=== PATIENT | female | born 1930 | race Caucasian/White ===

== ENCOUNTER 2019-06-01 14:12 | Emergency (ER) | payer MEDICARE ==
--- OUTSIDE RECORDS SUMMARY | 2019-06-01 14:36 | XMS REPORT | Summary of Care ---
:1930 Author Organization [facility] Address [address] [place] [address] Care Team Providers Name Role Phone Kirill Forbes MD Primary Care Provider Reason for Visit Auth/Cert Status Reason Specialty Diagnoses / Procedures Referred By Contact Referred To Contact Diagnoses toe ulcer Elvis Ayon MD [address] [facility] [address], [place] [address] Email: [email or web address] Encounter Details Date Type Department Care Team Description 05/29/2019 - Hospital Encounter 01D ONE DAY SUITE Elvis Ayon Claudication 05/30/2019 [address], [place] [address] [facility] [id number] [place] [id number] [phone] Allergies Active Allergy Reactions Severity Noted Date Comments Sulfamethoxazole-Trimethoprim Hives 08/08/2018 Bee Sting Anaphylaxis High 08/08/2018 documented as of this encounter (statuses as of 05/30/2019) Medications Medication Sig Dispensed Refills Start Date End Date Status clopidogrel Take 75 mg 0 06/30/2018 Active (PLAVIX) 75 MG by mouth tablet daily losartan-hydrochl Take 1 0 06/28/2018 Active orothiazide tablet by (HYZAAR) 100-25 mouth daily MG per tablet metoprolol Take 100 mg 0 05/29/2018 Active (TOPROL-XL) 100 by mouth MG 24 hr tablet daily oxybutynin Take 10 mg 11 07/19/2018 Active (DITROPAN-XL) 10 by mouth MG 24 hr tablet daily aspirin 81 MG Take 81 mg 0 Active tablet by mouth daily metFORMIN HCl ER Take 1 30 tablet 0 05/30/2019 Active 500 MG Oral tablet by Tablet Extended mouth Two Release 24 Hour Times Daily (GLUCOPHAGE-XR) metformin Take 500 mg 0 05/29/2019 Discontinued (GLUCOPHAGE-XR) by mouth Two (Reorder) 500 MG 24 hr Times Daily tablet documented as of this encounter (statuses as of 05/30/2019) Active Problems Problem Noted Date PVD (peripheral vascular disease) 08/26/2018 Normocytic anemia 08/11/2018 Cellulitis 08/08/2018 Cellulitis of right lower extremity 08/08/2018 Peripheral vascular disease 08/08/2018 T2DM (type 2 diabetes mellitus) 08/08/2018 HTN (hypertension) 08/08/2018 CAD (coronary artery disease) 08/08/2018 History of rheumatic fever 08/08/2018 HLD (hyperlipidemia) 08/08/2018 Hx of AKA (above knee amputation), left 08/08/2018 documented as of this encounter (statuses as of 05/30/2019) Social History Tobacco Use Types Packs/Day Years Used Date Former Smoker Cigarettes 06 20 Quit: 1972 Smokeless Tobacco: Never Used Alcohol Use Drinks/Week oz/Week Comments Yes occasionally Alcohol Habits Answer Date Recorded How often do you have a drink containing alcohol? Never 08/08/2018 How many drinks containing alcohol do you have on a typical Not asked day when you are drinking? How often do you have six or more drinks on one occasion? Not asked Sex Assigned at Date Recorded Not on file Job Start Date Occupation Industry Not on file Not on file Not on file Travel History Travel Start Travel End No recent travel history available. documented as of this encounter Last Filed Vital Signs Vital Sign Reading Time Taken Comments Blood Pressure 147/67 05/30/2019 11:15 AM EST Pulse 78 05/30/2019 11:15 AM EST Temperature 36.4 05/30/2019 11:15 AM EST C (97.5 F) Respiratory Rate 16 05/30/2019 11:15 AM EST Oxygen Saturation 99% 05/30/2019 11:15 AM EST Inhaled Oxygen Concentration - - Weight 72.6 kg (160 lb) 05/29/2019 11:17 AM EST Height 167.6 cm (5' 6") 05/29/2019 11:17 AM EST Body Mass Index 25.82 05/29/2019 11:17 AM EST documented in this encounter Discharge Summaries Maynor Fernandez MD - 05/30/2019 8:20 AM EST DISCHARGE SUMMARY PATIENT NAME: Slime Stiles DATE OF : 1930 DATE OF ADMISSION: 05/29/2019 DATE OF DISCHARGE: 05/30/2019 ATTENDING PHYSICIAN: Elvis Ayon MD PRIMARY CARE PHYSICIAN: KIRILL FORBES MD ADMISSION DIAGNOSIS: PVD (peripheral vascular disease) DISCHARGE DIAGNOSIS: PVD (peripheral vascular disease) PROCEDURE PERFORMED: Procedure(s) (LRB): REVASCULARIZATION,ENDOVASCULAR,OPEN OR PERCUTANEOUS,FEMORAL/POPLITEAL ARTERY W/ TRANSLUMINAL ANGIOPLASTY (Right) SECONDARY DIAGNOSIS: Principal Problem: PVD (peripheral vascular disease) Active Problems: T2DM (type 2 diabetes mellitus) HTN (hypertension) CAD (coronary artery disease) HLD (hyperlipidemia) HPI: Hospital Course: Patient with a stable post-operative course. No complications were noted. The patient progressed well through physical therapy. Pain was adequately controlled. Vital signs remained stable throughoutthe post-operative course. ACTIVITY: As per Physical Therapy and Occupational Therapy WEIGHT BEARING STATUS: LUE: weight bearing as tolerated RUE: weight bearing as tolerated LLE: weight bearing as tolerated RLE: weight bearing as tolerated DIET: Diabetic Medium Carb Consistent WOUND CARE:Apply a clean dry sterile dressing daily as needed for comfort or drainage BRACE/SPLINTS:None Required . DISCHARGE MEDICATION: Medication List CONTINUE taking these medications aspirin 81 MG tablet clopidogrel 75 MG tablet Commonly known as: PLAVIX losartan-hydrochlorothiazide 100-25 MG per tablet Commonly known as: HYZAAR metformin 500 MG 24 hr tablet Commonly known as: GLUCOPHAGE-XR Take 1 tablet by mouth Two Times Daily metoprolol 100 MG 24 hr tablet Commonly known as: TOPROL-XL oxybutynin 10 MG 24 hr tablet Commonly known as: DITROPAN-XL Where to Get Your Medications Information about where to get these medications is not yet available Ask your nurse or doctor about these medications metformin 500 MG 24 hr tablet FOLLOW UP: With Iram Lewis in 1 week on an outpatient basis. The office will contact you to schedule the appointment. documented in this encounter Discharge Instructions Discharge Instr - Other OrdersVolles, Alesha L, PA - 05/29/2019 5:49 PM ESTAngiogram home instructions: 1. NO driving for one day. 2. Relax and take it easy for the next 2 days. No heavy lifting, straining, or yard work (mowing, plowing shoveling etc.) for 3 days. 3. Remove and replace the bandaid daily for 3 days. Use Tylenol for discomfort as directed and an ice pack over the puncture site 3-5 times daily for 30 minutes each time for discomfort over the next 3-4 days. 4. Shower and wash the puncture sites with soap and water daily. (with the bandaid off) 5. It is normal to have some swelling, tenderness and bruising at the puncture sites. 6. If you notice an enlarging lump where the puncture site is please call the office to be examined. 7. If you begin to bleed from the puncture site lay down and have a friend or family member apply finger pressure directly over the bandaid with two hands for ten full minutes without breaks. If the bleeding has stopped after 10 minutes lie still for an hour then take it easy for the rest of the day. Call the office to be examined or 911 if the bleeding doesn't stop. If you are alone call 911 and lie down and apply pressure to the area yourself. 8. Resume your pre -angiogram diet and continue taking your Medications as you did before -- see 10 9. Drink plenty of fluids at least 40 ounces over the next 12 hours (five 8- ounce glasses of water, milk, juice or soda). This is to help flush the contrast dye through your kidneys. If you are a dialysis patient drink only your normal amount. 10. Important -If you were asked to stop taking one of your diabetes medications (containing METFORMIN, or GLUCOPHAGE) prior to your angiogram, 11. Call the office if you develop a fever greater than 102 degrees, a rash, hives or itching or youcannot keep down solid food. 12. Call the office when you get home to schedule a follow-up appointment in two (2) weeks. 13. If you have questions or problems at home or you need to make or change a follow up appointment: [facility] [phone] [facility] [phone] Any satellite office: [phone] ([facility], [facility]) I documented in this encounter Progress Notes Natalie Rivas RN - 05/30/2019 11:36 AM ESTDischarge instructions done and pt stated understanding, copies provided. All questions answered. Ptdischarged to home as per order. Nu Ballard MD - 05/30/2019 8:13 AM EST Vascular Surgery Progress Note Patient name: Slime Stiles : 1930 89 y.o. POD: 1 Day Post-Op s/p RLE angiogram with balloon angioplasty of the SFA and peroneal arteries SUBJECTIVE The patient is a 89 y.o. White or female with a history of PAD and right foot wounds and previous L AKA who was taken to the [facility] on 05/29/19 and underwent a RLE angiogram with balloon angioplasties of the SFA and peroneal arteries. She denies pain in the left groin, numbness, tingling, or weakness in the extrem. Denies CP, SOB, nausea, vomiting, abd, or back pain. PHYSICAL EXAM Vitals: Temp: [36.3 C (97.3 F)-36.7 C (98.1 F)] 36.4 C ( 97.5 F) Pulse: [60-98] 82 Resp: [16-18] 16 BP: (142-166)/(47-80) 159/70 SpO2: [92 %-100 %] 94 % O2 Therapy: Room air O2 Flow Rate (L/min): [2 L/min] 2 L/min I/O: Intake/Output Summary (Last 24 hours) at 05/30/2019 0813 Last data filed at 05/30/2019 0500 Gross per 24 hour Intake 1160 ml Output 150 ml Net 1010 ml General appearance: Alert, appears comfortable and in NAD. Lungs: Clear to auscultation bilaterally, no rhonchi, wheezes, or rales. Heart: Regular rate and rhythm, no murmur, rub, or gallop. Abdomen: Soft, non-tender, non-distended, normoactive bowel sounds. No flank tenderness Extremities: Left groin is soft with no edema. Dressing is C/D/I. L AKA is well healed. R foot is hyperemic. Movement and sensation intact. Pulses: R- DP/PT signals on doppler Labs, Imaging, and other diagnostics: Labs have been reviewed Assessment and Plan: Principal Problem: PVD (peripheral vascular disease) Active Problems: T2DM (type 2 diabetes mellitus) HTN (hypertension) CAD (coronary artery disease) HLD (hyperlipidemia) 1. PAD - s/p RLE angiogram with balloon angioplasty of the SFA and peroneal arteries - RLE is well perfused. Patient's right foot is hyperemic which she states is her baseline. - Good signals - Continue with aspirin and Plavix - OOB as tolerated 2. DM - Monitor BG, sliding scale insulin coverage, diabetic diet - Hold Metformin until tomorrow 3. HTN - SBP has been slightly elevated - Continue with Hyzaar and Toprol XL 4. DVT prophylaxis - heparin sc 5. ADOD - discharge today I saw and evaluated the patient. Discussed with the resident and agree with the residents findings and plans as written, along with any supplemental dictated and/or attending documentation in the patient record by myself. F/U with out INTERFACE CONTROL OFFICER in [place]. Natalie Gaviria RN - 05/29/2019 8:46 PM ESTPt stated feels tired and would like to sleep. Cont oxymetry in use. When pt fell asleep O2 Sat downto 83%. Pt woken up and asked to take deep breath, O2 Sat up to 88-90%, pt fell back to sleep. Pt put on 2L oxymask with O2 up to 98-100%. Pt stated she feels fine. Alesha WALL called and made aware of above stated. Will cont to monitor. Josh Ahmadi RN - 05/29/2019 3:01 PM [id number]: Report given to ODS RN , pt transported via stretcher to ODS. Given instructions on bedrest instructions, pt has no further questions. documented in this encounter Plan of Treatment Name Type Priority Associated Diagnoses Order Schedule POCT glucose, Point of Care Routine 4X Daily (AC & HS) docked AC & HS Testing-Docked Device for 30 Days starting 05/29/2019 until 06/28/2019 Oxygen Orders: Respiratory Care Routine Continuous for 30 Oxymask; days for 30 Days Wean/Titrate O2 starting 05/29/2019 to Keep Sats =>: until 06/28/2019 90 Health Maintenance Due Date Last Done Comments Lipid Disorder Screening 1930 MMR Vaccines (1 of 1 - 1932 Standard series) Varicella Vaccines (1 of 2 - 1932 2-dose childhood series) DTaP,Tdap,and Td Vaccines (1 1938 - Tdap) Diabetic Foot Exam 1949 Dilated Retinal Exam 1949 Urine Microalbumin 1949 Hepatitis B Vaccines (1 of 3 1950 - Risk 3-dose series) Zoster Vaccines (1 of 2) 1981 Osteoporosis Screening 2 yr 1996 Pneumococcal Vaccine: 65+ 1996 Years (1 of 2 - PCV13) Hemoglobin A1c 02/09/2019 08/09/2018, 08/09/2018 Influenza Vaccine 02/24/2019 HIB Vaccines Aged Out No longer eligible based on patient's age to complete this topic Hepatitis A Vaccines Aged Out No longer eligible based on patient's age to complete this topic IPV Vaccines Aged Out No longer eligible based on patient's age to complete this topic Pneumococcal Vaccine: Aged Out No longer eligible based Pediatrics (0 to 5 Years) and on patient's age to At-Risk Patients (6 to 64 complete this topic Years) documented as of this encounter Implants Implanted Type Area Executive Advisor Device Shelf Expiration Model / Identifier Date Serial / Lot Diane [id number] - [id number] NO MANUFACTURE [id number] / Implanted: Qty: 1 on 08/26/2018 by Elvis Ayon MD at [facility] / [id number] documented as of this encounter Procedures Procedure Name Priority Date/Time Associated Diagnosis Comments POCT GLUCOSE, DOCKED Routine 05/30/2019 9:08 Results for this AM EST procedure are in the results section. POCT GLUCOSE, DOCKED Routine 05/29/2019 9:42 Results for this PM EST procedure are in the results section. POCT GLUCOSE, DOCKED Routine 05/29/2019 6:14 Results for this PM EST procedure are in the results section. IR FEMORAL Routine 05/29/2019 2:21 Claudication Results for this ARTERIOGRAM PM EST Peripheral vascular procedure are in disease, unspecified the results section. POCT ISTAT ACT Routine 05/29/2019 1:34 Results for this PM EST procedure are in the results section. OPERATIVE AND 05/29/2019 12:47 PROCEDURE NOTE PM EST CBC Routine 05/29/2019 11:30 Results for this AM EST procedure are in the results section. BASIC METABOLIC Routine 05/29/2019 11:30 Results for this PANEL AM EST procedure are in the results section. POCT GLUCOSE, DOCKED Routine 05/29/2019 11:23 Results for this AM EST procedure are in the results section. documented in this encounter Results POCT glucose, docked (05/30/2019 9:08 AM EST) POC Glucose 161 (H) 70 - 140 mg/dL [facility] POC Specimen Whole Blood Performing Organization Address City/[facility] Phone Number POINT OF CARE TEST [address], [place] [id number] [place] [address] POC [address] [place] [address] POCT glucose, docked (05/29/2019 9:42 PM EST) POC Glucose 153 (H) 70 - 140 mg/dL [facility] POC Specimen Whole Blood Performing Organization Address City/[facility] Phone Number POINT OF CARE TEST [address] [place] [address] [facility] POC [address] [place] [address] POCT glucose, docked (05/29/2019 6:14 PM EST) POC Glucose 141 (H) 70 - 140 mg/dL [facility] POC Specimen Whole Blood Performing Organization Address City/State/Zipcode Phone Number POINT OF CARE TEST [address] [place] [address] [facility] POC [address] [place] [address] IR Arteriogram Femoral (05/29/2019 2:21 PM EST) Specimen Impressions Performed At IMPRESSION: Severe multilevel right lower extremity arterial occlusive [facility] disease. Successful endovascular intervention. SEDATION: The patient received Versed and fentanyl as part of her moderate sedation. She was sedated for approximately 45 minutes. Narrative Performed At 1. Right lower extremity arteriogram [facility] 2. Right superficial femoral artery balloon angioplasty 3. Right peroneal artery balloon angioplasty PREPROCEDURE DIAGNOSIS: Right lower extremity ulcers POST PROCEDURE DIAGNOSIS: Right lower extremity ulcer HISTORY AND INDICATIONS: This is a 89-year-old woman with right lower extremity nonhealing ulcers. She now presents for an arteriogram and possible endovascular intervention. The risks, benefits, and complications of the procedure were explained to the patient. She expressed understanding and agreed to proceed. PROCEDURE: The patient's left groin was prepped and draped in usual sterile fashion. A micropuncture needle was used to cannulate the left common femoral artery under ultrasound guidance. This was exchanged over a wire for a 5 Israeli sheath. An Omni Flush catheter was then placed into the abdominal aorta. The Omni Flush catheter was then used to selectively cannulate the right common iliac artery. It was then advanced over the wire into the right common femoral artery. A selective right lower extremity arteriogram was obtained. The patient was then given 5000 units of heparin. The Omni Flush catheter was then removed over the wire. The 5 Israeli sheath was exchanged for a 5 Israeli 70 cm sheath. 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 This was treated with balloon angioplasty using a 2 mm diameter balloon. The multiple areas of stenosis in the right superficial femoral artery with then treated with a 5 m diameter balloon. A completion arteriogram was then performed which showed residual dissection and stenosis of the right superficial femoral artery. This was treated with balloon angioplasty using a 5 mm diameter drug coated balloon. The sheath was removed and a Mynx device was placed for hemostasis. FINDINGS: The right common femoral artery was patent. The right profunda femoral artery was patent. The right superficial femoral artery had multiple areas of stenosis. The right popliteal artery was patent. The right proximal peroneal artery was completely occluded. There was reconstitution of the distal right peroneal artery. The right anterior tibial artery was occluded proximally. The right posterior tibial artery was completely occluded. Procedure Note Interface, Received Via [employer] System - 05/29/2019 4:36 PM EST 1. Right lower extremity arteriogram 2. Right superficial femoral artery balloon angioplasty 3. Right peroneal artery balloon angioplasty PREPROCEDURE DIAGNOSIS: Right lower extremity ulcers POST PROCEDURE DIAGNOSIS: Right lower extremity ulcer HISTORY AND INDICATIONS: This is a 89-year-old woman with right lower extremity nonhealing ulcers. She now presents for an arteriogram and possible endovascular intervention. The risks, benefits, and complications of the procedure were explained to the patient. She expressed understanding and agreed to proceed. PROCEDURE: The patient's left groin was prepped and draped in usual sterile fashion. A micropuncture needle was used to cannulate the left common femoral artery under ultrasound guidance. This was exchanged over a wire for a 5 Israeli sheath. An Omni Flush catheter was then placed into the abdominal aorta. The Omni Flush catheter was then used to selectively cannulate the right common iliac artery. It was then advanced over the wire into the right common femoral artery. A selective right lower extremity arteriogram was obtained. The patient was then given 5000 units of heparin. The Omni Flush catheter was then removed over the wire. The 5 Israeli sheath was exchanged for a 5 Israeli 70 cm sheath. 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 This was treated with balloon angioplasty using a 2 mm diameter balloon. The multiple areas of stenosis in the right superficial femoral artery with then treated with a 5 m diameter balloon. A completion arteriogram was then performed which showed residual dissection and stenosis of the right superficial femoral artery. This was treated with balloon angioplasty using a 5 mm diameter drug coated balloon. The sheath was removed and a Mynx device was placed for hemostasis. FINDINGS: The right common femoral artery was patent. The right profunda femoral artery was patent. The right superficial femoral artery had multiple areas of stenosis. The right popliteal artery was patent. The right proximal peroneal artery was completely occluded. There was reconstitution of the distal right peroneal artery. The right anterior tibial artery was occluded proximally. The right posterior tibial artery was completely occluded. IMPRESSION: Severe multilevel right lower extremity arterial occlusive disease. Successful endovascular intervention. SEDATION: The patient received Versed and fentanyl as part of her moderate sedation. She was sedated for approximately 45 minutes. Performing Organization Address City/[facility] Cent[facility]ode Phone Number [facility] [address] [place] [address] POCT i-STAT ACT (05/29/2019 1:34 PM EST) i-Stat ACT 164 [facility] POC Specimen Whole Blood Performing Organization Address [facility] Phone Number POINT OF CARE TEST [address] [place], [place] [id number] [place] [address] POC [address] [place] [address] CBC (05/29/2019 11:30 AM EST) White Blood Cell 6.7 4 - 10 10*3/uL [facility] Pathology Red Blood Cell 3.21 (L) 4.1 - 5.3 [facility] 10*6/uL [facility]ology Hemoglobin 6.9 (L) 11.5 - 15.5 [facility] g/dL [facility]ology Hematocrit 22.3 (L) 36 - 45 % [facility]ology Mean Cell Volume 69.5 (L) 80 - 96 fL [facility]ology Mean Cell Hemoglobin 21.4 (L) 27 - 33 pg [facility]ology Mean Cell Hgb Conc 30.7 (L) 32.0 - 36.0 [facility] g/dL [facility] Pathology Red Cell Dist Width 17.7 (H) 11.5 - 14.5 % [facility] Pathology Platelet Count 302 150 - 400 [facility] 10*3/uL [facility] Pathology Specimen EDTA Whole Blood Performing Organization Address [facility]otn Phone Number [facility] [address] [place] [address] [facility] [address] [place] [address] Pathology Basic Metabolic Panel (05/29/2019 11:30 AM EST) Bicarbonate 21 (L) 22 - 29 [facility] mmol/L [facility] Chloride 100 98 - 107 [facility] mmol/L [facility] Creatinine 1.19 (H) 0.50 - 0.90 [facility] mg/dL [facility]ology Glucose 192 (H) 70 - 140 [facility] mg/dL [facility] Potassium 3.9 3.4 - 5.1 [facility] mmol/L [facility] Sodium 139 136 - 145 [facility] mmol/L [facility]ology Blood Urea Nitrogen 31 (H) 8 - 23 mg/dL [facility]ology Anion Gap 19 (H) 8 - 15 mmol/L [facility] Pathology Osmolality, Frank 300 275 - 300 [facility] mosm/kg [facility]ology BUN/Cre Ratio 26 [facility] Pathology Calcium 9.3 8.8 - 10.2 [facility] mg/dL [facility] Pathology GFR Non eGFR is not >60 [facility] 2008 calculated in mL/min/1.73m2 [facility] CDK-EPI patients <18 or Pathology >80 years of age. GFR eGFR is not >60 [facility] 2008 calculated in mL/min/1.73m2 [facility] CKD-EPI patients <18 or Pathology >80 years of age. Specimen Plasma Performing Organization Address City/[facility]/Zipcode Phone Number [facility] [address] [place] [address] [facility] [address] [place] [address] Pathology POCT glucose, docked (05/29/2019 11:23 AM EST) POC Glucose 195 (H) 70 - 140 mg/dL [facility] POC Specimen Whole Blood Performing Organization Address City/[facility]/Zipcode Phone Number POINT OF CARE TEST [address] [place], [place] [id number] [place] [address] POC [address] [place] [address] documented in this encounter Visit Diagnoses Diagnosis Claudication Peripheral vascular disease, unspecified documented in this encounter Administered Medications Medication Order MAR Action Action Date Dose Rate Site aspirin chewable tablet 81 mg Given 05/30/2019 8:41 AM EST 81 mg 81 mg, Oral, Daily Standard, First dose on 05/30/19 at 0900, For 30 doses clopidogrel (PLAVIX) tablet 75 mg Given 05/30/2019 8:42 AM EST 75 mg 75 mg, Oral, Daily Standard, First dose on 05/30/19 at 0900, For 30 days dextrose 50 % IV solution 25 mL 25 mL, Intravenous, PRN, Other, blood glucose <55, Starting Sat05/29/19 at 1824 , For 30 days, Not for midline administration., glucagon (human recombinant) (GLUCAGEN) injection 1 mg 1 mg, Intramuscular, PRN, for glucose <55 without IV access, Starting Sat at 1824, For 30 days glucose (GLUTOSE) 40 % oral gel 15 g 15 g, Oral, PRN, Low blood sugar, for gluose 55-69 mg/dl and able to take PO, Starting Sat05/29/19 at 1824, For 30 days heparin (porcine) 5000 UNIT/ML injection 5,000 Units 5,000 Units, Subcutaneous, Three Times Daily Standard, First dose on Sat at 0900, For 30 days hydrochlorothiazide (HYDRODIURIL) tablet 25 mg 25 mg, Oral, Daily Standard, First dose on Sat05/30/19 at 0900, For 30 days insulin lispro (HumaLOG) injection LOW DOSE EATING INSULIN patients 1-8 Units 1-8 Units, Subcutaneous, Three Times Daily-With Meals, First dose on Sat at 0800, For 30 days, Nursing MUST open the 'SQ Insulin Dosing Charts' Sidebar Report, or, the Patient Summary or Summary Report within the ED. , losartan (COZAAR) tablet 100 mg 100 mg, Oral, Daily Standard, First dose on Sat05/30/19 at 0900, For 30 days, Check vital signs before administering, metoprolol (TOPROL-XL) 24 hr tablet 100 mg Given 05/30/2019 8:41 AM EST 100 mg 100 mg, Oral, Daily Standard, First dose on 05/30/19 at 0900, For 30 doses Medication Order MAR Action Action Date Dose Rate Site NaCl infusion 0.9 % New Bag 05/29/2019 11:25 AM EST 1,000 mLs 75 mL/hr at 75 mL/hr, Intravenous, Continuous, Starting Sat05/29/19 at 1100, For 8 hours, Start Normal Saline IV at 75 mL/hr, documented in this encounter
--- OUTSIDE RECORDS SUMMARY | 2019-06-01 14:36 | XMS REPORT | Summary of Care ---
:1930 Author Organization [facility] Address [address] [place] [address] Care Team Providers Name Role Phone Kirill Enriquez MD Primary Care Provider Reason for Visit Reason Comments Follow-up Encounter Details Date Type Department Care Team Description 05/01/2019 Office Visit [facility] Nu Hernández, Leg ulcer, right , limited to breakdown of skin (Primary Dx); [facility] MD CARLOS EDUARDO PAD (peripheral artery disease) Department of Surgery, [address] [place] [address] Division of Vascular Room [address] [place], [place] [facility] [id number] [facility] [phone] [place] [address] (Fax) [phone] Allergies Active Allergy Reactions Severity Noted Date Comments Sulfamethoxazole-Trimethoprim Hives 08/08/2018 Bee Sting 08/08/2018 Beeswax Anaphylaxis High 08/08/2018 documented as of this encounter (statuses as of 05/01/2019) Medications Medication Sig Dispensed Refills Start Date End Date Status clopidogrel (PLAVIX) Take 75 mg by mouth 0 06/30/2018 Active 75 MG tablet daily losartan-hydrochlorot Take 1 tablet by 0 06/28/2018 Active hiazide (HYZAAR) mouth daily 100-25 MG per tablet metoprolol Take 100 mg by 0 05/29/2018 Active (TOPROL-XL) 100 MG 24 mouth daily hr tablet oxybutynin Take 10 mg by mouth 11 07/19/2018 Active (DITROPAN-XL) 10 MG daily 24 hr tablet aspirin 81 MG tablet Take 81 mg by mouth 0 Active daily metformin Take 500 mg by 0 Active (GLUCOPHAGE-XR) 500 mouth daily with MG 24 hr tablet breakfast documented as of this encounter (statuses as of 05/01/2019) Active Problems Problem Noted Date PVD (peripheral vascular disease) 08/26/2018 Normocytic anemia 08/11/2018 Cellulitis 08/08/2018 Cellulitis of right lower extremity 08/08/2018 Peripheral vascular disease 08/08/2018 T2DM (type 2 diabetes mellitus) 08/08/2018 HTN (hypertension) 08/08/2018 CAD (coronary artery disease) 08/08/2018 History of rheumatic fever 08/08/2018 HLD (hyperlipidemia) 08/08/2018 Hx of AKA (above knee amputation), left 08/08/2018 documented as of this encounter (statuses as of 05/01/2019) Social History Tobacco Use Types Packs/Day Years [...] Sign Reading Time Taken Comments Blood Pressure 190/87 05/01/2019 1:14 PM EST Pulse 10 05/01/2019 1:14 PM EST Temperature 35.9 05/01/2019 1:14 PM EST C (96.7 F) Respiratory Rate 18 05/01/2019 1:14 PM EST Oxygen Saturation 98% 05/01/2019 1:14 PM EST Inhaled Oxygen Concentration - - Weight 72.6 kg (160 lb) 05/01/2019 1:14 PM EST Height 167.6 cm (5' 6") 05/01/2019 1:14 PM EST Body Mass Index 25.82 05/01/2019 1:14 PM EST documented in this encounter Progress Notes Nu Hernández MD - 05/01/2019 1:00 PM EST Subjective: Patient ID: Slime Stiles is a 88 y.o. female withpast medical history of Cancer, Cellulitis,[id number] mellitus, Hypertension, PVD (peripheral vascular disease), Rheumatic feverwho presentedwith Right lower extremity cellulitis and non-healing ulcer on the Right great toe. She finished her antibiotic course on Saturday. She was referred for Right lower extremity angiogram with possible angioplasty/stent. She had a Left AKA on July 2015 at [facility]. 08/27/18 PROCEDURE: 1. Aortogram and right lower extremity runoff 2. Right superficial femoral artery balloon angioplasty 3. Right peroneal artery balloon angioplasty She had her Right LENARD/ TBI at [facility] 09/26/18 LENARD [facility]: Right: PT 0.61; DP .91; digit 0.23 Left: amputation I reviewed the report of the MRI 10/16/18 RLE: Likely reactive edema. She saw Roseanna Martin at [facility] and is very happy with her care. Her right great toe wound is slow to heal. She has been getting Epifix. Chief Complaint: MARGO Palencia has a past medical history of Cancer, Cellulitis, Diabetes mellitus, Hypertension, PVD (peripheral vascular disease), Rheumatic fever, and Vascular abnormality. Slime has Cellulitis; Cellulitis of right lower extremity; Peripheral vascular disease; T2DM (type2 diabetes mellitus); HTN (hypertension); CAD ( coronary artery disease); History of rheumatic fever;HLD (hyperlipidemia); Hx of AKA (above knee amputation), left; Normocytic anemia; and PVD (peripheral vascular disease) on their problem list. Slime has a past surgical history that includes Breast surgery; Above knee leg amputaton (Left); Knee surgery (Left); Eye surgery; and art extremity lower or upper (Right, 08/26/2018). Her family history includes Diabetes in her father and mother; Heart disease in her father. Slime reports that she quit smoking about 46 years ago. Her smoking use included cigarettes. She has a 25.00 pack-year smoking history. She has never used smokeless tobacco. She reports current alcohol use. She reports that she does not use drugs. Slime has a current medication list which includes the following prescription( s): aspirin, clopidogrel, losartan-hydrochlorothiazide, metformin, metoprolol, and oxybutynin. Current Outpatient Medications on File Prior to Visit Medication Sig Dispense Refill aspirin 81 MG tablet Take 81 mg by mouth daily clopidogrel (PLAVIX) 75 MG tablet Take 75 mg by mouth daily losartan-hydrochlorothiazide (HYZAAR) 100-25 MG per tablet Take 1 tablet by mouth daily metformin (GLUCOPHAGE-XR) 500 MG 24 hr tablet Take 500 mg by mouth daily with breakfast metoprolol (TOPROL-XL) 100 MG 24 hr tablet Take 100 mg by mouth daily oxybutynin (DITROPAN-XL) 10 MG 24 hr tablet Take 10 mg by mouth daily 11 No current facility-administered medications on file prior to visit. Slime is allergic to beeswax; bactrim [sulfamethoxazole-trimethoprim]; and bee sting. Review of Systems All other systems reviewed and are negative. Objective: Physical Exam Constitutional: She is oriented to person, place, and time. She appears well- developed. HENT: Head: Normocephalic. Cardiovascular: Normal rate. Monophasic AT, PT, biphasic peroneal on right Pulmonary/Chest: Effort normal. Neurological: She is alert and oriented to person, place, and time. Skin: Skin is warm and dry. Right inner great toe wound healing slowly with pink granulation tissue Psychiatric: She has a normal mood and affect. Her behavior is normal. Judgment and thought content normal. Nursing note and vitals reviewed. wound measures 2 cm x 0.4 cm x UD (has Epifix 2 weeks ago). Lab Review: 04/20/19 LENARD: Right 0.41, monophasic waveform right PT and DP. Progressively decreased compared to September 2018. Assessment: 1. Leg ulcer, right, limited to breakdown of skin 2. PAD (peripheral artery disease) Plan: Her LENARD has declined. She feels that the wound is getting better. Her flow is monophasic to Right foot. I will reach out to DR. Martin to discuss progress and possible angiogram vs. Observation. I will see her back in 3 month or sooner if necessary. documented in this encounter Plan of Treatment Health Maintenance Due Date Last Done Comments Lipid Disorder Screening 1930 MMR Vaccines ( - 1931 Standard series) DTaP,Tdap,and Td Vaccines (1 1938 - [...] (6 to 64 complete this topic Years) Varicella Vaccines Aged Out No longer eligible based on patient's age to complete this topic documented as of this encounter Implants Implanted Type Area Member Service Specialist Device Shelf Expiration Model / Identifier Date Serial / Lot Vas Sanaz - Mynx [id number] - [id number] NO MANUFACTURE [id number] / Implanted: Qty: 1 on 08/26/2018 by Elvis Ayon MD at OR [facility] / [id number] documented as of this encounter Results Not on filedocumented in this encounter Visit Diagnoses Diagnosis Leg ulcer, right, limited to breakdown of skin - Primary PAD (peripheral artery disease) Peripheral vascular disease, unspecified documented in this encounter
--- NOTE | 2019-06-01 14:46 | ED ---
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 Martin in the wound clinic presents to the emergency department today after a venous Doppler of the right lower extremity found questionable nonocclusive thrombus of the calf veins without thrombus within or above the popliteal vein and Howard' s cyst. Patient states 3 days ago she had a venogram performed and one day later began feeling more fatigued, short of breath, and experiencing chest pain and right calf and ankle edema. Patient has never had a DVT in the past and currently takes Plavix. Patient has no other complaints at this time and denies abdominal pain, pain with urination, rash. Family history and social history noncontributory. Patient is being transferred to the emergency department by Dr. Martin at the wound clinic. - History of Current Complaint Chief Complaint: EDExtremityLower Stated Complaint: POSS DVT PER PT Time Seen by Provider: 06/01/19 14:41 Hx Obtained From: Patient Mechanism Of Injury: Unknown Onset of Pain: Days Onset/Duration: Days Severity Initially: Moderate Severity Currently: Moderate Pain Intensity: 3 Pain Scale Used: 0-10 Numeric Timing: Constant Location: Is Discrete @ - Right calf Character Of Pain: Aching Associated Signs And Symptoms: Positive: Swelling. Negative: Redness, Bruising Aggravating Factor(s): Standing, Ambulation, Movement, Weight Bearing Alleviating Factor(s): Rest Able to Bear Weight: Yes - Allergies/Home Medications Allergies/Adverse Reactions: Allergies Allergy/AdvReac Type Severity Reaction Status Date / Time bee venom protein (honey bee) Allergy Unknown Swelling Verified 06/01/19 16:06 sulfamethoxazole Allergy Unknown Rash Verified 06/01/19 16:06 [From Bactrim] trimethoprim [From Bactrim] Allergy Unknown Rash Verified 06/01/19 16:06 Home Medications: Home Medications Losartan/Hydrochlorothiazide [Losartan Potassium/Hydroc 100-25 mg] 1 tab PO DAILY 06/01/19 [History Confirmed 06/01/19] Metoprolol Succinate XL TAB* [Toprol XL TAB*] 100 mg PO DAILY 06/01/19 [History Confirmed 06/01/19] Oxybutynin Chloride [Oxybutynin Chloride ER] 10 mg PO DAILY 06/01/19 [History Confirmed 06/01/19] PMH/Surg Hx/FS Hx/Imm Hx Previously Healthy: Yes - well-known Endocrine/Hematology History: Reports: Hx Diabetes, Hx Anemia Cardiovascular History: Reports: Hx Hypercholesterolemia, Hx Hypertension, Hx Syncope Denies: Hx Pacemaker/ICD History: Denies: Hx Renal Disease Sensory History: Reports: Hx Contacts or Glasses Denies: Hx Hearing Aid Opthamlomology History: Reports: Hx Contacts or Glasses Psychiatric History: Denies: Hx Panic Disorder - Cancer History Cancer Type, Location and Year: breast cancer hx - Surgical History Surgery Procedure, Year, and Place: SEVERAL SURGERIES PRIOR TO LEFT LEG AMPUTATION. SKIN GRAFT ABOVE FOOT AND KNEE LEFT LEG. LUMPECTOMY BILATERAL BREAST 2007. LEFT THIGH PROTEGE STENT-OK UP TO 3T-SCANNED IN FILE. BILATERAL CATARACTS Infectious Disease History: No Infectious Disease History: Denies: Traveled Outside the [place] in Last 30 Days - Social History Alcohol Use: None Substance Use Type: Reports: None Smoking Status (MU): Former Smoker Review of Systems Constitutional: Negative Eyes: Negative ENT: Negative Cardiovascular: Negative Positive: Shortness Of Breath, Cough Gastrointestinal: Negative Genitourinary: Negative Positive: Myalgia, Edema. Negative: Arthralgia Skin: Negative Neurological: Negative Psychological: Normal All Other Systems Reviewed And Are Negative: Yes Physical Exam - Summary Physical Exam Summary: Patient has a noted left below the knee amputation. There are chronic wounds noted to the right foot. Patient has +1 pitting edema without ecchymosis or erythema noted to the right lower extremity. Lungs are clear to auscultation throughout the precordium. Triage Information Reviewed: Yes Vital Signs On Initial Exam: Initial Vitals Temp Pulse Resp BP Pulse Ox 98.1 F 71 19 135/63 92 06/01/19 14:22 06/01/19 14:22 06/01/19 14:22 06/01/19 14:22 06/01/19 14:22 Vital Signs Reviewed: Yes Appearance: Positive: Well-Appearing, No Pain Distress, Well-Nourished Eyes: Positive: EOMI, MILENA ENT: Positive: Hearing grossly normal Respiratory/Lung Sounds: Positive: Clear to Auscultation, Breath Sounds Present Cardiovascular: Positive: RRR, S1, S2 Abdomen Description: Positive: Nontender, Soft Bowel Sounds: Positive: Present Musculoskeletal: Positive: Strength/ROM Intact Neurological: Positive: Sensory/Motor Intact, Alert, Oriented to Person Place, Time, Normal Gait, Speech Normal Psychiatric: Positive: Normal, Affect/Mood Appropriate AVPU Assessment: Alert Procedures - Sedation Patient Received Moderate/Deep Sedation with Procedure: No Diagnostics - Vital Signs Vital Signs Temp Pulse Resp BP Pulse Ox 06/01/19 14:22 98.1 F 71 19 135/63 92 - Laboratory Result Diagrams: 06/01/19 14:54 06/01/19 14:54 Lab Statement: Any lab studies that have been ordered have been reviewed, and results considered in the medical decision making process. Lower Extremity Course/Dx - Course Course Of Treatment: Patient was evaluated in the emergency department today for findings of a questionable nonocclusive thrombus of the calf veins without thrombus within normal the popliteal vein on a recent right lower extremity Doppler ultrasound ordered by Roseanna Martin M.D. Patient was seen and evaluated the patient was afebrile however she was mildly hypoxic with a pulse oximetry saturation of 92% on room air. EKG was done promptly which shows normal sinus rhythm at a rate of 72 bpm. Normal CO and QTc interval. No evidence of myocardial infarction. T wave inversions in leads 3, V5,V6 which are new when compared to priors done on 10/27/14. Labs returned showing no leukocytosis with a white blood cell count of 6.7. There is significant anemia noted with an H&H of 6.6/ 21 this is compared to her previous study done on 2018 with an H&H of 10.7/32.CBC also shows +1 polychromasia, +1 hypochromasia, + 2 microcytosis. Patient denies mariam blood or dark stools per rectum or other sources of bleeding. Patient states she has had multiple blood transfusions in the past due to and competitions from her below the knee amputation. BUN 33, creatinine 1.17, BUN/creatinine ratio 28.2. These are significantly elevated compared to priors. Patient has an elevated d-dimer and mildly elevated INR at 1.21. CTA chest shows no pulmonary arterial filling defect to suggest pulmonary embolism. Occult stool sample was sent to investigate GI bleed which resulted as negative. Type and screen was performed and the patient was given 1 unit of packed red blood cells. Hospitalist, Dr. Aviles was consulted for admission of this patient for further workup and she did not feel she needed admission for evaluation as she was asymptomatic. Dr. Hardy, the oncall associate of her primary care physician Dr. Harrison was consulted for disposition of the patient at 1809. Dr. Hardy suggested not starting the patient on anticoagulation and to order a CT of the abdomen pelvis with contrast to investigate possible source of anemia. She believes due to the patient being asymptomatic for anemia she may be given 2 units of packed red blood cells in the emergency department and have outpatient follow-up with Dr. harrison on 06/03/2019. Pt was given one more unit of PRBCs for [address] and a CT abd/pelvis w was ordered. Pt was signed out to MAE Ruiz at 1830. - Diagnoses Differential Diagnosis/HQI/PQRI: Positive: DVT, Other - pulmonary embolism, Anemia, GI bleed Provider Diagnoses: DVT (deep venous thrombosis), Anemia - Physician Notifications Discussed Care Of Patient With: Vanna Hardy - Dr. Hardy suggested not starting the patient on anticoagulation and to order a CT of the abdomen pelvis with contrast to investigate possible source of anemia. She believes due to the patient being asymptomatic for anemia she may be given 2 units of packed red blood cells in the emergency department and have outpatient follow-up with Dr. harrison on 06/03/2019. Discharge ED - Sign-Out/Discharge Documenting (check all that apply): Sign-Out Patient Signing out patient TO: Zoila Silva Receiving patient FROM: Kraig Padron - Discharge Plan Condition: Stable Disposition: HOME Patient Education Materials: Anemia (ED) Referrals: Kirill Harrison MD [Primary Care Provider] - Matty Rabago MD [Medical Doctor] - Additional Instructions: will not anticoagulant at this time with anemia present follow up with dr harrison a referral was given to GI Return to ED if pass out, see any blood in stool, or any new or worsening symptoms - Billing Disposition and Condition Condition: STABLE Disposition: Home - Attestation Statements Provider Attestation: I was available for consult. This patient was seen by the JIMBO. The patient was not presented to, seen by, or examined by me. Owen Galvan MD
[2019-06-01 15:25] LABS: Activated Partial Thrombo Time 27.3 seconds (26.0-38.0); INR 1.21 (0.82-1.09)
[2019-06-01 15:49] LABS: Albumin 3.4 g/dL (3.2-5.2); Albumin/Globulin Ratio 1.3 (1-3); BUN/Creatinine Ratio 28.2 (8-20); Calcium 9.2 mg/dL (8.6-10.3); EGFR African American 52.8 (>60); EGFR Non-African American 43.7 (>60); Globulin 2.7 g/dL (2-4); Potassium 3.6 mmol/L (3.5-5.0); Total Bilirubin 0.4 mg/dL (0.2-1.0); Total Protein 6.1 g/dL (6.4-8.9)
[2019-06-01 15:55] LABS: Microcytosis 2+; Polychromasia 1+
[2019-06-01 15:59] LABS: ABS Basophils 0.1 10^3/ul (0-0.2); ABS Lymphocytes 0.5 10^3/ul (1.0-4.8); ABS Monocytes 0.7 10^3/ul (0-0.8); ABS Neutrophils 5.4 10^3/ul (1.5-7.7); Eosinophil % 0.2 %; Hematocrit 21 % (35-47); Hemoglobin 6.6 g/dL (12.0-16.0); Lymphocyte % 7.8 %; Mean Corpuscular HGB Conc 31 g/dL (31-36); Mean Corpuscular Hemoglobin 21 pg (27-31); Mean Corpuscular Volume 68 fL (80-97); Mean Platelet Volume 7.8 fL (7.4-10.4); Nucleated Red Blood Cells % 0.3; Platelet Count 259 10^3/uL (150-450); Red Blood Count 3.16 10^6 /uL (3.70-4.87); Red Cell Distribution Width 19 % (10-15); White Blood Count 6.7 10^3/uL (3.5-10.8)
[2019-06-01] MEDS ORDERED: Iodixanol* (CONTRAST) 320 MG/ML 100 ML SDV IV ONE ×2 (16:00→18:31)
[2019-06-01] MEDS ORDERED: NS 0.9% 1000 ML** 1,000 ML IV ONE (16:40)
[2019-06-01] MEDS ORDERED: Lactated Ringers 1000 ML Bag* 1,000 ML IV ONE (17:00)
[2019-06-01] MEDS ORDERED: Lactated Ringers 1000 ML Bag* 1,000 ML IV SCH (17:00)
--- NOTE | 2019-06-01 18:51 | ED ---
Progress - Progress Note Progress Note: patient signed out pending CT and completion of blood transfusion CT shows IMPRESSION: 1. Bilateral pleural effusions again noted, at least moderate on the right and small on the left. Atelectasis. 2. No hemoperitoneum or hematoma. 3. 8 cm left adnexal cyst. 4. No other acute disease seen. As above. Re-Evaluation - Re-Evaluation First Eval Re-Evaluation Time: 19:43 Comment: still on first bag Course/Dx - Course Course Of Treatment: Patient was evaluated in the emergency department today for findings of a questionable nonocclusive thrombus of the calf veins without thrombus within normal the popliteal vein on a recent right lower extremity Doppler ultrasound ordered by Roseanna Martin M.D. Patient was seen and evaluated the patient was afebrile however she was mildly hypoxic with a pulse oximetry saturation of 92% on room air. EKG was done promptly which shows normal sinus rhythm at a rate of 72 bpm. Normal IA and QTc interval. No evidence of myocardial infarction. T wave inversions in leads 3, V5,V6 which are new when compared to priors done on 10/27/14. Labs returned showing no leukocytosis with a white blood cell count of 6.7. There is significant anemia noted with an H&H of 6.6/ 21 this is compared to her previous study done on 2018 with an H&H of 10.7/32.CBC also shows +1 polychromasia, +1 hypochromasia, + 2 microcytosis. Patient denies mariam blood or dark stools per rectum or other sources of bleeding. Patient states she has had multiple blood transfusions in the past due to and competitions from her below the knee amputation. BUN 33, creatinine 1.17, BUN/creatinine ratio 28.2. These are significantly elevated compared to priors. Patient has an elevated d-dimer and mildly elevated INR at 1.21. CTA chest shows no pulmonary arterial filling defect to suggest pulmonary embolism. Occult stool sample was sent to investigate GI bleed which resulted as negative. Type and screen was performed and the patient was given 1 L of packed red blood cells. Dr. Hardy, the oncall associate of her primary care physician Dr. Harrison was consulted for disposition of the patient at 1809. Dr. Hardy suggested not starting the patient on anticoagulation and to order a CT of the abdomen pelvis with contrast to investigate possible source of anemia. She believes due to the patient being asymptomatic for anemia she may be given 2 units of packed red blood cells in the emergency department and have outpatient follow-up with Dr. harrison on 2019. CT shows no source for anemia. patient tolerated blood tranfusion. patient understand and agrees with plan. - Diagnoses Provider Diagnoses: DVT (deep venous thrombosis), Anemia Discharge ED - Sign-Out/Discharge Documenting (check all that apply): Patient Departure, Receiving Sign-Out Receiving patient FROM: Kraig Padron - Discharge Plan Condition: Stable Disposition: HOME Patient Education Materials: Anemia (ED) Referrals: Kirill Harrison MD [Primary Care Provider] - Matty Rabago MD [Medical Doctor] - Additional Instructions: will not anticoagulant at this time with anemia present follow up with dr harrison a referral was given to GI Return to ED if pass out, see any blood in stool, or any new or worsening symptoms - Billing Disposition and Condition Condition: STABLE Disposition: Home - Attestation Statements Provider Attestation: I was available for consult. This patient was seen by the JIMBO. The patient was not presented to, seen by, or examined by me. Owen Galvan MD
[2019-06-02 00:52] VITALS: BP 163/75
== END 2019-06-02 00:52 | disposition home or self-care (01) ==
LOC: ED 14:12
DX: I82.409 Acute embolism and thrombosis of unspecified deep veins of unspecified lower extremity (principal); D64.9 Anemia, unspecified; J90 Pleural effusion, not elsewhere classified; Z79.899 Other long term (current) drug therapy; E78.00 Pure hypercholesterolemia, unspecified; I10 Essential (primary) hypertension
CPT/HCPCS: 36415; 71275; 74177; 80053; 82270; 85025; 85060; 85379; 85610; 85730; 86850; 86900; 86901; 86922; 93005; 99285; P9040; Q9967

== ENCOUNTER 2020-01-31 17:28 | Inpatient (IN) ==
[2020-01-31] MEDS ORDERED: NS 0.9% 1000 ml BAG 1,000 ML IV ONE (17:53)
[2020-01-31 18:13] LABS: ABS Eosinophils 0.1 10^3/ul (0-0.6); ABS Lymphocytes 0.9 10^3/ul (1.0-4.8); ABS Monocytes 0.7 10^3/ul (0-0.8); ABS Neutrophils 8.1 10^3/ul (1.5-7.7); Eosinophil % 0.9 %; Hematocrit 30 % (35-47); Hemoglobin 10.5 g/dL (12.0-16.0); Lymphocyte % 9.3 %; Mean Corpuscular HGB Conc 35 g/dL (31-36); Mean Corpuscular Hemoglobin 30 pg (27-31); Mean Corpuscular Volume 87 fL (80-97); Mean Platelet Volume 7.4 fL (7.4-10.4); Platelet Count 383 10^3/uL (150-450); Red Blood Count 3.51 10^6 /uL (3.70-4.87); Red Cell Distribution Width 18 % (10-15); White Blood Count 9.9 10^3/uL (3.5-10.8)
[2020-01-31 18:22] LABS: INR 1.03 (0.82-1.09)
[2020-01-31 18:33] LABS: Albumin 2.6 g/dL (3.2-5.2); Albumin/Globulin Ratio 0.8 (1-3); BUN/Creatinine Ratio 27.7 (8-20); C Reactive Protein 80.06 mg/L (<8.01); Calcium 8.6 mg/dL (8.6-10.3); EGFR African American 55.6 (>60); EGFR Non-African American 45.9 (>60); Globulin 3.3 g/dL (2-4); Potassium 3.1 mmol/L (3.5-5.0); Total Bilirubin 0.5 mg/dL (0.2-1.0); Total Protein 5.9 g/dL (6.4-8.9)
[2020-01-31] MEDS ORDERED: Iodixanol (CONTRAST) 320 MG/ML 100 ML SDV IV ONE (18:43)
[2020-01-31] MEDS ORDERED: NS 0.9% 1000 ml BAG 1,000 ML IV SCH (23:00)
[2020-02-01] MEDS: Potassium Chloride LIQUID 20 MEQ/15 ML LIQUID PO SCH ×2 (01:36→04:39)
[2020-02-01] MEDS ORDERED: Dextrose 50% Syringe 50 ml 25 GM/50 ML SYRINGE IV PUSH PRN (03:17)
[2020-02-01 03:24] LABS: Digoxin 1.2 ng/ml (0.8-2.0)
[2020-02-01 08:16] LABS: ABS Eosinophils 0.1 10^3/ul (0-0.6); ABS Lymphocytes 0.8 10^3/ul (1.0-4.8); ABS Monocytes 0.6 10^3/ul (0-0.8); ABS Neutrophils 5.2 10^3/ul (1.5-7.7); Eosinophil % 1.2 %; Hematocrit 27 % (35-47); Hemoglobin 9.3 g/dL (12.0-16.0); Lymphocyte % 12.3 %; Mean Corpuscular HGB Conc 34 g/dL (31-36); Mean Corpuscular Hemoglobin 30 pg (27-31); Mean Corpuscular Volume 88 fL (80-97); Mean Platelet Volume 7.3 fL (7.4-10.4); Platelet Count 308 10^3/uL (150-450); Red Blood Count 3.12 10^6 /uL (3.70-4.87); Red Cell Distribution Width 17 % (10-15); White Blood Count 6.7 10^3/uL (3.5-10.8)
[2020-02-01 08:31] LABS: BUN/Creatinine Ratio 31.1 (8-20); Calcium 8.1 mg/dL (8.6-10.3); EGFR African American 71.5 (>60); EGFR Non-African American 59.1 (>60); Potassium 3.5 mmol/L (3.5-5.0)
[2020-02-01] MEDS: Potassium Chlor 10 meq TAB PO SCH (08:49)
[2020-02-01] MEDS ORDERED: Lidocaine 2% JELLY 5 ML TUBE LIDO2GEL7 TOPICAL ONE (11:57)
[2020-02-01] MEDS ORDERED: Lidocaine 2% JELLY 6 ML TOPICAL ONE (12:30)
[2020-02-01] MEDS ORDERED: fentaNYL 100 mcg/2 ml 50 MCG/ML VIAL ONE (14:39)
[2020-02-01] MEDS ORDERED: Midazolam 10 mg/10 ml VIAL 1 mg/ml 10 ml VIAL (10 mg) ONE (14:39)
[2020-02-01] MEDS ORDERED: hydrALAZINE 20 mg/ml 1 ML Vial IV IV SLOW PU PRN (15:56)
[2020-02-01] MEDS ORDERED: Iron Sucrose 200 MG in NS 0.9% 100 ml BAG 100 ML IVPB ONE (16:17)
[2020-02-01 16:30] LABS: Hematocrit 30 % (35-47); Hemoglobin 9.7 g/dL (12.0-16.0)
[2020-02-01 23:41] LABS: Hematocrit 28 % (35-47); Hemoglobin 9.3 g/dL (12.0-16.0)
[2020-02-02 06:44] LABS: ABS Basophils 0.1 10^3/ul (0-0.2); ABS Eosinophils 0.1 10^3/ul (0-0.6); ABS Lymphocytes 0.7 10^3/ul (1.0-4.8); ABS Monocytes 0.6 10^3/ul (0-0.8); ABS Neutrophils 6.7 10^3/ul (1.5-7.7); Eosinophil % 1.5 %; Hematocrit 27 % (35-47); Hemoglobin 9.2 g/dL (12.0-16.0); Lymphocyte % 8.9 %; Mean Corpuscular HGB Conc 34 g/dL (31-36); Mean Corpuscular Hemoglobin 30 pg (27-31); Mean Corpuscular Volume 87 fL (80-97); Mean Platelet Volume 7.3 fL (7.4-10.4); Platelet Count 284 10^3/uL (150-450); Red Blood Count 3.07 10^6 /uL (3.70-4.87); Red Cell Distribution Width 18 % (10-15); White Blood Count 8.2 10^3/uL (3.5-10.8)
[2020-02-02 06:46] LABS: Hematocrit 27 % (35-47); Hemoglobin 9.4 g/dL (12.0-16.0)
[2020-02-02 07:07] LABS: BUN/Creatinine Ratio 27.1 (8-20); Calcium 8.2 mg/dL (8.6-10.3); EGFR African American 76.4 (>60); EGFR Non-African American 63.1 (>60); Magnesium 1.1 mg/dL (1.9-2.7); Potassium 3.1 mmol/L (3.5-5.0)
[2020-02-02] MEDS ORDERED: Magnesium Sulf 4 GM/100 ML IV 4,000 MG/100 ML BAG IVPB ONE (07:39)
[2020-02-02] MEDS: Potassium Chlor 10 meq TAB PO SCH (08:36)
[2020-02-02] MEDS: Iron Sucrose 200 MG in NS 0.9% 100 ml BAG 100 ML IVPB SCH (09:16)
[2020-02-02] MEDS: KCL 20 MEQ/100 ML IVPREMIX 20 MEQ/100 ML BAG IV SCH ×2 (10:24→17:23)
[2020-02-02] MEDS ORDERED: Lidocaine 2.5%/Prilocain 2.5% 5 GM TUBE TOPICAL ONE (14:00)
[2020-02-03 08:28] LABS: Hematocrit 29 % (35-47); Hemoglobin 9.5 g/dL (12.0-16.0); Mean Corpuscular HGB Conc 33 g/dL (31-36); Mean Corpuscular Hemoglobin 29 pg (27-31); Mean Corpuscular Volume 88 fL (80-97); Platelet Count 310 10^3/uL (150-450); Red Blood Count 3.27 10^6 /uL (3.70-4.87); Red Cell Distribution Width 18 % (10-15); White Blood Count 6.6 10^3/uL (3.5-10.8)
[2020-02-03 08:33] LABS: ABS Basophils 0.1 10^3/ul (0-0.2); ABS Eosinophils 0.2 10^3/ul (0-0.6); ABS Lymphocytes 0.8 10^3/ul (1.0-4.8); ABS Monocytes 0.6 10^3/ul (0-0.8); ABS Neutrophils 5.1 10^3/ul (1.5-7.7); Lymphocyte % 12.2 %
[2020-02-03 08:58] LABS: Calcium 8.5 mg/dL (8.6-10.3); EGFR African American 81.9 (>60); EGFR Non-African American 67.7 (>60); Magnesium 1.8 mg/dL (1.9-2.7); Potassium 3.2 mmol/L (3.5-5.0)
[2020-02-03] MEDS: Aspirin EC 81 mg TAB.EC (enteric coated) PO SCH (09:22)
[2020-02-03] MEDS: Potassium Chlor 10 meq TAB PO SCH (09:22)
[2020-02-03] MEDS: Iron Sucrose 200 MG in NS 0.9% 100 ml BAG 100 ML IVPB SCH (09:32)
[2020-02-03] MEDS ORDERED: Magnesium Sulfate 2 gm BAG 2 GM/50 ML BAG IVPB ONE (13:14)
[2020-02-03] MEDS: KCL 20 MEQ/100 ML IVPREMIX 20 MEQ/100 ML BAG IV SCH ×2 (15:34→17:43)
[2020-02-04 06:43] LABS: ABS Basophils 0.1 10^3/ul (0-0.2); ABS Eosinophils 0.2 10^3/ul (0-0.6); ABS Lymphocytes 1.1 10^3/ul (1.0-4.8); ABS Monocytes 0.7 10^3/ul (0-0.8); ABS Neutrophils 4.8 10^3/ul (1.5-7.7); Eosinophil % 2.9 %; Hematocrit 26 % (35-47); Hemoglobin 8.6 g/dL (12.0-16.0); Mean Corpuscular HGB Conc 33 g/dL (31-36); Mean Corpuscular Hemoglobin 29 pg (27-31); Mean Corpuscular Volume 88 fL (80-97); Mean Platelet Volume 7.3 fL (7.4-10.4); Platelet Count 272 10^3/uL (150-450); Red Blood Count 2.96 10^6 /uL (3.70-4.87); Red Cell Distribution Width 18 % (10-15); White Blood Count 6.7 10^3/uL (3.5-10.8)
[2020-02-04 07:03] LABS: BUN/Creatinine Ratio 24.7 (8-20); EGFR African American 72.4 (>60); EGFR Non-African American 59.9 (>60); Potassium 3.5 mmol/L (3.5-5.0)
[2020-02-04] MEDS: Aspirin EC 81 mg TAB.EC (enteric coated) PO SCH (07:53)
[2020-02-04] MEDS: Potassium Chlor 10 meq TAB PO SCH (07:57)
[2020-02-04] MEDS: Iron Sucrose 200 MG in NS 0.9% 100 ml BAG 100 ML IVPB SCH (09:03)
[2020-02-05 06:40] LABS: ABS Eosinophils 0.1 10^3/ul (0-0.6); ABS Monocytes 0.6 10^3/ul (0-0.8); ABS Neutrophils 4.5 10^3/ul (1.5-7.7); Corrected Retic Count 0.4 % (0.5-1.5); Eosinophil % 1.4 %; Hematocrit 25 % (35-47); Hematocrit for Retic CNT 25 % (35-47); Hemoglobin 8.3 g/dL (12.0-16.0); Immature Retic Fraction 0.56; Lymphocyte % 16.3 %; Mean Corpuscular HGB Conc 34 g/dL (31-36); Mean Corpuscular Hemoglobin 30 pg (27-31); Mean Corpuscular Volume 88 fL (80-97); Mean Platelet Volume 6.7 fL (7.4-10.4); Platelet Count 253 10^3/uL (150-450); RBC Retic Count 2.81 10^6/uL (3.70-4.87); Red Blood Count 2.81 10^6 /uL (3.70-4.87); Red Cell Distribution Width 17 % (10-15); White Blood Count 6.2 10^3/uL (3.5-10.8)
[2020-02-05 06:59] LABS: Calcium 8.4 mg/dL (8.6-10.3); EGFR African American 59.8 (>60); EGFR Non-African American 49.5 (>60); Magnesium 1.6 mg/dL (1.9-2.7); Potassium 3.2 mmol/L (3.5-5.0)
[2020-02-05] MEDS ORDERED: Magnesium Sulfate 2 gm BAG 2 GM/50 ML BAG IVPB ONE (07:30)
[2020-02-05] MEDS: KCL 20 MEQ/100 ML IVPREMIX 20 MEQ/100 ML BAG IV SCH ×2 (07:47→12:13)
[2020-02-05] MEDS: Aspirin EC 81 mg TAB.EC (enteric coated) PO SCH (07:58)
[2020-02-05] MEDS ORDERED: Aminophylline 25 MG/ML VIAL ONE (10:52)
[2020-02-05] MEDS ORDERED: Regadenoson 0.4 MG/5 ML SYRINGE ONE (10:52)
[2020-02-05] MEDS: Iron Sucrose 200 MG in NS 0.9% 100 ml BAG 100 ML IVPB SCH (15:02)
[2020-02-06 07:12] LABS: ABS Basophils 0.1 10^3/ul (0-0.2); ABS Eosinophils 0.2 10^3/ul (0-0.6); ABS Lymphocytes 0.9 10^3/ul (1.0-4.8); ABS Monocytes 0.6 10^3/ul (0-0.8); ABS Neutrophils 4.8 10^3/ul (1.5-7.7); Eosinophil % 2.7 %; Hematocrit 24 % (35-47); Hemoglobin 8.1 g/dL (12.0-16.0); Lymphocyte % 14.4 %; Mean Corpuscular HGB Conc 34 g/dL (31-36); Mean Corpuscular Hemoglobin 30 pg (27-31); Mean Corpuscular Volume 88 fL (80-97); Mean Platelet Volume 7.1 fL (7.4-10.4); Nucleated Red Blood Cells % 0.1; Platelet Count 224 10^3/uL (150-450); Red Blood Count 2.66 10^6 /uL (3.70-4.87); Red Cell Distribution Width 18 % (10-15); White Blood Count 6.6 10^3/uL (3.5-10.8)
[2020-02-06 07:32] LABS: BUN/Creatinine Ratio 20.2 (8-20); Calcium 8.3 mg/dL (8.6-10.3); EGFR African American 60.5 (>60); Magnesium 1.8 mg/dL (1.9-2.7); Potassium 3.8 mmol/L (3.5-5.0)
[2020-02-06] MEDS ORDERED: Magnesium Sulfate IV 1GM/100ML 1 GM/100 ML BAG IV ONE (08:52)
[2020-02-06] MEDS: Aspirin EC 81 mg TAB.EC (enteric coated) PO SCH (09:27)
[2020-02-07] MEDS: Aspirin EC 81 mg TAB.EC (enteric coated) PO SCH (07:22)
[2020-02-08] MEDS: Aspirin EC 81 mg TAB.EC (enteric coated) PO SCH (09:26)
[2020-02-08 10:02] LABS: ABS Eosinophils 0.1 10^3/ul (0-0.6); ABS Lymphocytes 0.9 10^3/ul (1.0-4.8); ABS Monocytes 0.7 10^3/ul (0-0.8); ABS Neutrophils 4.9 10^3/ul (1.5-7.7); Eosinophil % 1.7 %; Hematocrit 26 % (35-47); Hemoglobin 8.5 g/dL (12.0-16.0); Lymphocyte % 13.3 %; Mean Corpuscular HGB Conc 33 g/dL (31-36); Mean Corpuscular Hemoglobin 29 pg (27-31); Mean Corpuscular Volume 88 fL (80-97); Mean Platelet Volume 7.3 fL (7.4-10.4); Platelet Count 235 10^3/uL (150-450); Red Blood Count 2.95 10^6 /uL (3.70-4.87); Red Cell Distribution Width 17 % (10-15); White Blood Count 6.6 10^3/uL (3.5-10.8)
[2020-02-08 10:27] LABS: BUN/Creatinine Ratio 20.4 (8-20); Calcium 8.2 mg/dL (8.6-10.3); EGFR African American 64.8 (>60); EGFR Non-African American 53.6 (>60); Magnesium 1.6 mg/dL (1.9-2.7); Potassium 3.5 mmol/L (3.5-5.0)
[2020-02-08 15:01] LABS: Hematocrit 26 % (35-47); Hemoglobin 8.6 g/dL (12.0-16.0)
[2020-02-09 08:49] VITALS: BP 165/45
[2020-02-09] MEDS: Aspirin EC 81 mg TAB.EC (enteric coated) PO SCH (10:26)
== END 2020-02-09 11:25 | DRG 377 ==
LOC: MED 17:28 → ED 17:28 → MED 02-01 00:20
PROVIDERS: ADMIT Nurse Practitioner Family; ATTEND Hospitalist

== ENCOUNTER 2020-03-04 10:30 | Inpatient (IN) ==
[~2020-03-04 10:30] MED LIST: Buffered Lidocaine 1% SYRIN 1 ml INTRADERM ONE; ERTAPENEM IVPB SCH; Lactated Ringers 1000 ml BAG 1,000 ML IV SCH; NS 0.9% IVPB SCH
[2020-03-04] MEDS ORDERED: Midazolam 2 mg/2 ml VIAL 1 mg/ml 2 ml VIAL (2 mg) ONE (13:19)
[2020-03-04 13:29] LABS: BUN/Creatinine Ratio 31.3 (8-20); Calcium 8.8 mg/dL (8.6-10.3); EGFR African American 64.1 (>60); EGFR Non-African American 52.9 (>60); Potassium 3.7 mmol/L (3.5-5.0)
[2020-03-04] MEDS ORDERED: Propofol 10 MG/ML 20 ML BTL ONE (14:00)
[2020-03-04] MEDS ORDERED: Ondansetron 4 mg VIAL 2 MG/ML 2 ml VIAL ONE (14:00)
[2020-03-04] MEDS ORDERED: Dexamethasone IV 4 MG/ML VIAL 1 ml VIAL ONE (14:00)
[2020-03-04] MEDS ORDERED: Rocuronium 50 mg VIAL 10 mg/ml 5 ml VIAL (50 mg) ONE (14:01)
[2020-03-04] MEDS ORDERED: fentaNYL 250 mcg/5 ml 50 MCG/ML 5 ml VIAL (250 MCG) ONE (14:01)
[2020-03-04] MEDS ORDERED: Etomidate 20 mg/10 ml 2 MG/ML 10 ml VIAL ONE (15:24)
[2020-03-04] MEDS ORDERED: ROPIVACAINE 5 MG/ML 30 ML BTL (0.5%) ONE (16:24)
[2020-03-04] MEDS ORDERED: EPINEPHrine SYR 0.1MG/ML 10 ml SYRINGE ONE (16:27)
[2020-03-04] MEDS ORDERED: HYDROmorphone 1 MG/1 ML SYRINGE IV SLOW PU PRN (17:10)
[2020-03-04] MEDS ORDERED: Ondansetron 4 mg VIAL 2 MG/ML 2 ml VIAL IV PRN (17:10)
[2020-03-04] MEDS ORDERED: Naloxone 0.4 mg VIAL 0.4 mg/ml 1 ml VIAL IV PRN ×2 (17:25→18:47)
[2020-03-04] MEDS ORDERED: fentaNYL 100 mcg/2 ml 50 MCG/ML VIAL IV PRN ×2 (17:25→18:47)
[2020-03-04] MEDS ORDERED: Acetaminophen IV 1 GM/100ML 1,000 MG/100 ML VIAL IVPB ONE (17:25)
[2020-03-04] MEDS ORDERED: DiMENhydriNATE IV 50 mg/ml 1 ml VIAL IV PUSH PRN ×2 (17:25→18:47)
[2020-03-04] MEDS ORDERED: Acetaminophen IV 1 GM/100ML 100 ML ONE (17:31)
[2020-03-04] MEDS ORDERED: fentaNYL 100 mcg/2 ml 50 MCG/ML VIAL ONE (17:45)
[2020-03-04] MEDS: Lactated Ringers 1000 ml BAG 1,000 ML IVPB SCH (20:15)
[2020-03-04] MEDS: Insulin GLARGINE 100 un/ml 10 ml VIAL SUBCUT SCH (21:33)
[2020-03-05 06:26] LABS: Urine Appearance Cloudy; Urine Bilirubin Negative (Negative); Urine Blood 2+ (Negative); Urine Color Yellow; Urine Glucose Negative (Negative); Urine Ketones Trace (Negative); Urine Nitrite Negative (Negative); Urine Protein 1+(30 mg/dL) (Negative); Urine Specific Gravity 1.016 (1.010-1.030); Urine Urobilinogen Negative (Negative)
[2020-03-05 06:31] LABS: Urine Bacteria 1+ (Absent); Urine Red Blood Cell 3+(>10/hpf) (Absent); Urine Squamous Epithelial Cell Present (Absent); Urine White Blood Cell 3+(>20/hpf) (Absent)
[2020-03-05 08:42] LABS: ABS Lymphocytes 0.5 10^3/ul (1.0-4.8); ABS Monocytes 0.7 10^3/ul (0-0.8); ABS Neutrophils 12.1 10^3/ul (1.5-7.7); Hematocrit 25 % (35-47); Hemoglobin 7.8 g/dL (12.0-16.0); Lymphocyte % 3.4 %; Mean Corpuscular HGB Conc 31 g/dL (31-36); Mean Corpuscular Hemoglobin 30 pg (27-31); Mean Corpuscular Volume 97 fL (80-97); Mean Platelet Volume 7.8 fL (7.4-10.4); Nucleated Red Blood Cells % 0.1; Platelet Count 253 10^3/uL (150-450); Red Blood Count 2.62 10^6 /uL (3.70-4.87); Red Cell Distribution Width 17 % (10-15); White Blood Count 13.3 10^3/uL (3.5-10.8)
[2020-03-05] MEDS: Lactated Ringers 1000 ml BAG 1,000 ML IVPB SCH ×2 (09:44→23:04)
[2020-03-05 09:57] LABS: BUN/Creatinine Ratio 32.6 (8-20); EGFR Non-African American 57.6 (>60); Potassium 4.5 mmol/L (3.5-5.0)
[2020-03-05 09:58] LABS: Calcium 8.5 mg/dL (8.6-10.3); EGFR African American 69.7 (>60); Magnesium 1.3 mg/dL (1.9-2.7)
[2020-03-05] MEDS ORDERED: Magnesium Sulf 4 GM/100 ML IV 4,000 MG/100 ML BAG IVPB ONE (10:24)
[2020-03-05] MEDS: Heparin 5000 UNITS/ML 1 mL VIAL SUBCUT SCH ×2 (13:56→21:40)
[2020-03-05] MEDS: Insulin GLARGINE 100 un/ml 10 ml VIAL SUBCUT SCH (21:40)
[2020-03-06] MEDS: Heparin 5000 UNITS/ML 1 mL VIAL SUBCUT SCH ×3 (06:06→22:07)
[2020-03-06] MEDS ORDERED: Insulin GLARGINE 100 un/ml 10 ml VIAL SUBCUT SCH ×2 (08:30→21:00)
[2020-03-06] MEDS: Lactated Ringers 1000 ml BAG 1,000 ML IVPB SCH (12:13)
[2020-03-07] MEDS: Lactated Ringers 1000 ml BAG 1,000 ML IVPB SCH (03:17)
[2020-03-07] MEDS: Heparin 5000 UNITS/ML 1 mL VIAL SUBCUT SCH ×3 (05:50→21:46)
[2020-03-07 08:26] LABS: ABS Eosinophils 0.1 10^3/ul (0-0.6); ABS Lymphocytes 0.9 10^3/ul (1.0-4.8); ABS Monocytes 0.5 10^3/ul (0-0.8); ABS Neutrophils 3.4 10^3/ul (1.5-7.7); Eosinophil % 2.5 %; Hematocrit 21 % (35-47); Hemoglobin 6.7 g/dL (12.0-16.0); Lymphocyte % 17.4 %; Mean Corpuscular HGB Conc 33 g/dL (31-36); Mean Corpuscular Hemoglobin 30 pg (27-31); Mean Corpuscular Volume 92 fL (80-97); Mean Platelet Volume 7.2 fL (7.4-10.4); Platelet Count 247 10^3/uL (150-450); Red Blood Count 2.24 10^6 /uL (3.70-4.87); Red Cell Distribution Width 17 % (10-15); White Blood Count 4.9 10^3/uL (3.5-10.8)
[2020-03-07 08:38] LABS: BUN/Creatinine Ratio 24.2 (8-20); EGFR African American 67.2 (>60); EGFR Non-African American 55.5 (>60); Magnesium 1.6 mg/dL (1.9-2.7); Potassium 4.3 mmol/L (3.5-5.0)
[2020-03-07] MEDS ORDERED: Magnesium Sulfate IV 3 GM in NS 0.9% 100 ml BAG 100 ML IVPB ONE (11:00)
[2020-03-07] MEDS ORDERED: NS 0.9% 100 ml BAG 100 ML ONE (14:08)
[2020-03-08] MEDS: Heparin 5000 UNITS/ML 1 mL VIAL SUBCUT SCH ×3 (05:33→22:36)
[2020-03-08 10:09] LABS: ABS Eosinophils 0.1 10^3/ul (0-0.6); ABS Lymphocytes 0.8 10^3/ul (1.0-4.8); ABS Monocytes 0.5 10^3/ul (0-0.8); ABS Neutrophils 4.3 10^3/ul (1.5-7.7); Eosinophil % 1.7 %; Hematocrit 29 % (35-47); Hemoglobin 9.5 g/dL (12.0-16.0); Lymphocyte % 14.1 %; Mean Corpuscular HGB Conc 33 g/dL (31-36); Mean Corpuscular Hemoglobin 30 pg (27-31); Mean Corpuscular Volume 90 fL (80-97); Nucleated Red Blood Cells % 0.1; Platelet Count 308 10^3/uL (150-450); Red Cell Distribution Width 16 % (10-15); White Blood Count 5.7 10^3/uL (3.5-10.8)
[2020-03-08 10:22] LABS: BUN/Creatinine Ratio 18.9 (8-20); Calcium 8.5 mg/dL (8.6-10.3); EGFR African American 67.2 (>60); EGFR Non-African American 55.5 (>60); Magnesium 1.9 mg/dL (1.9-2.7); Potassium 4.2 mmol/L (3.5-5.0)
[2020-03-09] MEDS: Heparin 5000 UNITS/ML 1 mL VIAL SUBCUT SCH ×3 (05:34→22:18)
[2020-03-10] MEDS: Heparin 5000 UNITS/ML 1 mL VIAL SUBCUT SCH ×2 (05:17→14:03)
[2020-03-10 11:23] VITALS: BP 133/41
== END 2020-03-10 15:10 | DRG 330 ==
LOC: AA 11:23 → SSU 20:42
PROVIDERS: ADMIT Surgery; ATTEND Surgery

== ENCOUNTER 2020-10-04 14:45 | Inpatient (IN) ==
[2020-10-04] MEDS ORDERED: NS 0.9% 1000 ml BAG 1,000 ML IV ONE (15:10)
[2020-10-04 16:19] LABS: ABS Basophils 0.1 10^3/ul (0-0.2); ABS Lymphocytes 0.5 10^3/ul (1.0-4.8); ABS Monocytes 0.4 10^3/ul (0-0.8); ABS Neutrophils 6.1 10^3/ul (1.5-7.7); Eosinophil % 0.2 %; Hematocrit 38 % (35-47); Hemoglobin 12.2 g/dL (12.0-16.0); Lymphocyte % 6.8 %; Mean Corpuscular HGB Conc 32 g/dL (31-36); Mean Corpuscular Hemoglobin 30 pg (27-31); Mean Corpuscular Volume 93 fL (80-97); Mean Platelet Volume 8.5 fL (7.4-10.4); Platelet Count 242 10^3/uL (150-450); Red Blood Count 4.06 10^6 /uL (3.70-4.87); Red Cell Distribution Width 19 % (10-15)
[2020-10-04 16:42] LABS: Troponin I 0.28 ng/mL (<0.03)
[2020-10-04 17:06] LABS: Albumin 3.3 g/dL (3.2-5.2); Anion Gap 10 mmol/L (2-11); CO2 Carbon Dioxide 25 mmol/L (22-32); Calcium 9.2 mg/dL (8.6-10.3); Chloride 99 mmol/L (101-111); Magnesium 2.4 mg/dL (1.9-2.7); Potassium 4.8 mmol/L (3.5-5.0); Sodium 134 mmol/L (135-145)
[2020-10-04 17:12] LABS: ALT 56 U/L (7-52); AST 52 U/L (13-39); Albumin/Globulin Ratio 1.1 (1-3); Alkaline Phosphatase 143 U/L (34-104); Blood Urea Nitrogen 62 mg/dL (6-24); EGFR African American 21.9 (>60); EGFR Non-African American 18.1 (>60); Globulin 3.1 g/dL (2-4); Glucose 155 mg/dL (70-100); Total Protein 6.4 g/dL (6.4-8.9)
[2020-10-04 17:28] LABS: TSH Ultra Thyroid Stim Horm 4.31 mcIU/mL (0.34-5.60)
[2020-10-04] MEDS ORDERED: Magnesium Hydroxide LIQ 30 ML UDC PO PRN (18:20)
[2020-10-04] MEDS ORDERED: Dextrose 50% Syringe 50 ml 25 GM/50 ML SYRINGE IV PUSH PRN (18:22)
[2020-10-04 19:02] LABS: C Reactive Protein 45.06 mg/L (<8.01)
[2020-10-04 19:32] LABS: Troponin I 0.25 ng/mL (<0.03)
[2020-10-04 22:40] LABS: Troponin I 0.23 ng/mL (<0.03)
[2020-10-05 02:01] LABS: Troponin I 0.23 ng/mL (<0.03)
[2020-10-05 05:07] LABS: ABS Lymphocytes 0.5 10^3/ul (1.0-4.8); ABS Monocytes 0.5 10^3/ul (0-0.8); ABS Neutrophils 6.3 10^3/ul (1.5-7.7); Eosinophil % 0.3 %; Hematocrit 37 % (35-47); Hemoglobin 11.7 g/dL (12.0-16.0); Lymphocyte % 6.8 %; Mean Corpuscular HGB Conc 32 g/dL (31-36); Mean Corpuscular Hemoglobin 30 pg (27-31); Mean Corpuscular Volume 94 fL (80-97); Mean Platelet Volume 8.5 fL (7.4-10.4); Nucleated Red Blood Cells % 0.2; Platelet Count 231 10^3/uL (150-450); Red Blood Count 3.97 10^6 /uL (3.70-4.87); Red Cell Distribution Width 21 % (10-15); White Blood Count 7.4 10^3/uL (3.5-10.8)
[2020-10-05 05:23] LABS: Albumin 3.1 g/dL (3.2-5.2); Indirect Bilirubin 0.4 mg/dL (0.3-1.0); Potassium 4.9 mmol/L (3.5-5.0); Total Bilirubin 0.6 mg/dL (0.2-1.0)
[2020-10-05 05:29] LABS: Albumin/Globulin Ratio 1.1 (1-3); EGFR African American 22.4 (>60); EGFR Non-African American 18.5 (>60); Globulin 2.8 g/dL (2-4); Total Protein 5.9 g/dL (6.4-8.9)
[2020-10-05] MEDS: Senna TAB 8.6 mg TAB PO SCH (10:22)
[2020-10-05] MEDS ORDERED: NS 0.9% 500 ml BAG 500 ML IV ONE (10:47)
[2020-10-05] MEDS ORDERED: Benzocaine/Menthol LOZ PO PRN (17:57)
[2020-10-06] MEDS: Senna TAB 8.6 mg TAB PO SCH ×2 (09:27→09:35)
[2020-10-06] MEDS ORDERED: Phenol 1.4% Throat Spray 177 ml BTL TOPICAL PRN (11:37)
[2020-10-07 05:17] LABS: Urine Appearance Cloudy; Urine Bilirubin Negative (Negative); Urine Blood Negative (Negative); Urine Color Yellow; Urine Glucose Negative (Negative); Urine Ketones Negative (Negative); Urine Nitrite Negative (Negative); Urine Protein 2+(100 mg/dL) (Negative); Urine Specific Gravity 1.018 (1.002-1.030); Urine Urobilinogen Negative (Negative)
[2020-10-07 05:31] LABS: Urine Bacteria 1+ (Absent); Urine Red Blood Cell Trace(0-2/hpf) (Absent); Urine Squamous Epithelial Cell Present (Absent); Urine Uric Acid Crystals Present (Absent); Urine White Blood Cell Trace(0-5/hpf) (Absent)
[2020-10-07 06:13] LABS: INR 1.15 (0.82-1.09)
[2020-10-07 06:15] LABS: ABS Basophils 0.1 10^3/ul (0-0.2); ABS Lymphocytes 0.5 10^3/ul (1.0-4.8); ABS Monocytes 0.7 10^3/ul (0-0.8); ABS Neutrophils 5.8 10^3/ul (1.5-7.7); Eosinophil % 0.5 %; Hematocrit 38 % (35-47); Hemoglobin 12.2 g/dL (12.0-16.0); Lymphocyte % 6.9 %; Mean Corpuscular HGB Conc 32 g/dL (31-36); Mean Corpuscular Hemoglobin 30 pg (27-31); Mean Corpuscular Volume 93 fL (80-97); Mean Platelet Volume 8.9 fL (7.4-10.4); Nucleated Red Blood Cells % 0.1; Platelet Count 144 10^3/uL (150-450); Red Blood Count 4.08 10^6 /uL (3.70-4.87); Red Cell Distribution Width 20 % (10-15); White Blood Count 7.1 10^3/uL (3.5-10.8)
[2020-10-07 06:19] LABS: Total Iron Binding Capacity 234 mcg/dL (250-450); Transferrin 167 mg/dL (203-362)
[2020-10-07 06:22] LABS: ALT 30 U/L (7-52); AST 19 U/L (13-39); Albumin 2.6 g/dL (3.2-5.2); Alkaline Phosphatase 134 U/L (34-104); Anion Gap 7 mmol/L (2-11); Blood Urea Nitrogen 49 mg/dL (6-24); CO2 Carbon Dioxide 23 mmol/L (22-32); Calcium 8.5 mg/dL (8.6-10.3); Chloride 106 mmol/L (101-111); EGFR African American 38.7 (>60); Globulin 2.6 g/dL (2-4); Glucose 141 mg/dL (70-100); Potassium 4.4 mmol/L (3.5-5.0); Sodium 136 mmol/L (135-145); Total Protein 5.2 g/dL (6.4-8.9)
[2020-10-07 06:28] LABS: Troponin I 0.14 ng/mL (<0.03)
[2020-10-07 06:32] LABS: TSH Ultra Thyroid Stim Horm 2.89 mcIU/mL (0.34-5.60)
[2020-10-07 06:35] LABS: Free T4 1.57 ng/dL (0.61-1.12)
[2020-10-07 06:38] LABS: Ferritin 102.6 ng/mL (11-307)
[2020-10-07 06:43] LABS: % Iron Saturation 9 % (15-55); Iron < 20 ug/dL (50-212); Unsaturated Iron Binding < 219 ug/dL
[2020-10-07] MEDS: Senna TAB 8.6 mg TAB PO SCH (10:45)
[2020-10-08 07:47] LABS: Albumin 2.8 g/dL (3.2-5.2); Calcium 8.9 mg/dL (8.6-10.3); EGFR African American 46.7 (>60); EGFR Non-African American 38.6 (>60); Globulin 2.9 g/dL (2-4); Potassium 4.3 mmol/L (3.5-5.0); Total Bilirubin 0.8 mg/dL (0.2-1.0); Total Protein 5.7 g/dL (6.4-8.9)
[2020-10-08] MEDS ORDERED: Iron Sucrose 20 MG/ML 5 ML VIAL IV PUSH SCH (09:00)
[2020-10-08] MEDS: Iron Sucrose 200 MG in NS 0.9% 100 ml IVPB SCH (09:44)
[2020-10-08] MEDS: Senna TAB 8.6 mg TAB PO SCH (09:53)
[2020-10-08] MEDS: cefTRIAXone 1 gm/50 mL NS BAG 1 GM/50 ML BAG IVPB SCH (17:14)
[2020-10-09 05:36] LABS: ABS Lymphocytes 0.6 10^3/ul (1.0-4.8); ABS Monocytes 0.8 10^3/ul (0-0.8); ABS Neutrophils 5.5 10^3/ul (1.5-7.7); Eosinophil % 0.7 %; Hematocrit 37 % (35-47); Hemoglobin 11.8 g/dL (12.0-16.0); Lymphocyte % 9.2 %; Mean Corpuscular HGB Conc 32 g/dL (31-36); Mean Corpuscular Hemoglobin 30 pg (27-31); Mean Corpuscular Volume 92 fL (80-97); Mean Platelet Volume 8.1 fL (7.4-10.4); Platelet Count 258 10^3/uL (150-450); Red Blood Count 4.01 10^6 /uL (3.70-4.87); Red Cell Distribution Width 20 % (10-15)
[2020-10-09 05:54] LABS: Calcium 8.8 mg/dL (8.6-10.3); EGFR African American 51.7 (>60); EGFR Non-African American 42.7 (>60); Potassium 4.3 mmol/L (3.5-5.0)
[2020-10-09] MEDS: Iron Sucrose 200 MG in NS 0.9% 100 ml IVPB SCH (09:09)
[2020-10-09] MEDS: Senna TAB 8.6 mg TAB PO SCH (09:10)
[2020-10-09] MEDS: cefTRIAXone 1 gm/50 mL NS BAG 1 GM/50 ML BAG IVPB SCH (16:51)
[2020-10-10] MEDS: Senna TAB 8.6 mg TAB PO SCH (09:29)
[2020-10-10] MEDS: Iron Sucrose 200 MG in NS 0.9% 100 ml IVPB SCH (09:29)
[2020-10-10] MEDS ORDERED: Dextran 70/Hypromellose Tears Eye Drops 15 ml BTL (for Artificials Tears) BOTH EYES PRN (11:43)
[2020-10-10] MEDS: cefTRIAXone 1 gm/50 mL NS BAG 1 GM/50 ML BAG IVPB SCH (16:49)
[2020-10-11] MEDS: Senna TAB 8.6 mg TAB PO SCH ×2 (10:29→10:36)
[2020-10-12 07:45] VITALS: BP 152/71
[2020-10-12] MEDS: Senna TAB 8.6 mg TAB PO SCH (08:35)
== END 2020-10-12 14:45 | DRG 436 ==
LOC: ED 14:45 → MEDTELE 20:22
PROVIDERS: ADMIT Student in an Organized Health Care Education/Training Program; ATTEND Internal Medicine